=== PATIENT | male | born 1965 | race Caucasian/White ===

== ENCOUNTER 2020-01-10 10:30 | Day surgery (SDC) | payer BC ==
[~2020-01-10] VITALS: Ht 182.9 cm; Wt 124.3 kg
[~2020-01-10 10:30] MED LIST: LORTAB 10/500 51 TAB PO; NORVASC 5MG5 MG/TAB PO; PRAVACHOL 40MG40 MG PO; PRINIVIL20 MG PO
[2020-01-10] MEDS ORDERED: ATORVASTATIN CALCIUM PO (11:18)
[2020-01-10] MEDS ORDERED: GLUMETZA500 MG PO (11:20)
[2020-01-10] MEDS ORDERED: LIPITOR20 MG PO (11:20)
[2020-01-10 11:21] VITALS: BP 146/63; PULSE 66; TEMP 98.1
[2020-01-10] MEDS ORDERED: ASPIRIN E.C. 8181 MG PO (11:21)
--- NOTE | 2020-01-10 11:26 | NUR ---
TO RM AT 1050- CALL LIGHT IN REACH WILL CALL FOR RIDE HOME
[2020-01-10] MEDS ORDERED: NORCO 325 MG-51 TAB PO (14:36)
[2020-01-10] MEDS ORDERED: MOTRIN 600600 MG/TAB PO (14:37)
[2020-01-10] MEDS ORDERED: COLACE 100100 MG/CAP PO (14:37)
[2020-01-10 14:45] VITALS: BP 122/60; PULSE 71; TEMP 98.2
--- NOTE | 2020-01-10 14:45 | NUR ---
TO RM 8 PER CART FROM PACU. ALERT ORIENTED X3, TALKING TO STAFF. VALERO SET OVER INCISION CLEAN DRY INTACT. RECEIVED WATER.
[2020-01-10 15:00] VITALS: BP 123/59; PULSE 69
--- NOTE | 2020-01-10 15:00 | NUR ---
DRANK CUP OF WATER. RESTING QUIETLY.
[2020-01-10 15:15] VITALS: BP 124/58; PULSE 74
--- NOTE | 2020-01-10 15:15 | NUR ---
ABLE TO REPOSITION SELF UP IN BED. RECEIVED APPLE SAUCE AND 2ND CUP OF WATER.
[2020-01-10 15:30] VITALS: BP 127/64; PULSE 74
--- NOTE | 2020-01-10 15:30 | NUR ---
ATE 100% AND TOLERATED WELL.
--- NOTE | 2020-01-10 15:45 | NUR ---
AMBULATED BATHROOM STEADY GIAT. VOIDED AND AMBULATED BACK TO . RECEIVED DISCHARGE INSTRUCTIONS AND VERBALIZED UNDERSTANDING. CALLED TO STADIUM ATTENDANT PAITENT.
--- NOTE | 2020-01-10 16:00 | NUR ---
DISCHARGED PER WC BY NURSING STAFF TO PRIVATE CAR IN CARE OF JANUSZ.
== END 2020-01-10 16:08 | disposition home or self-care (01) ==
LOC: SDCO 10:30
DX: K42.9 Umbilical hernia without obstruction or gangrene (principal); K43.2 Incisional hernia without obstruction or gangrene; E11.9 Type 2 diabetes mellitus without complications; I10 Essential (primary) hypertension; E78.00 Pure hypercholesterolemia, unspecified; Z79.84 Long term (current) use of oral hypoglycemic drugs; Z82.49 Family history of ischemic heart disease and other diseases of the circulatory system; Z88.5 Allergy status to narcotic agent
CPT/HCPCS: C1781; J0690; J1100; J1885; J2405; J2704; J3010; J7120

== ENCOUNTER → 2020-06-04 | Outpatient (CLI) | payer BC ==
[~2020-06-04] MED LIST changes: +ASPIRIN E.C. 8181 MG PO; +ATORVASTATIN CALCIUM PO; +COLACE 100100 MG/CAP PO; +GLUMETZA500 MG PO; +LIPITOR20 MG PO; +MOTRIN 600600 MG/TAB PO; +NORCO 325 MG-51 TAB PO
== END ==
LOC: COL.RAD 12:29
DX: K63.89 Other specified diseases of intestine (principal); K76.89 Other specified diseases of liver
CPT/HCPCS: Q9967

== ENCOUNTER 2020-12-07 19:02 | Inpatient (IN) | payer BC ==
[~2020-12-07] VITALS: Ht 182.9 cm; Wt 104.5 kg
[2020-12-07 20:22] LABS: BASO % 0.2 % (0.0-2.0); EOS % 0.3 % (0-4.0); GRAN # 7.6 (1.4-6.5); GRAN % 78.7 % (42.2-75.2); LYMPH # 0.9 (1.2-3.4); LYMPH % 9.3 % (20.0-51.0); MEAN CELL VOLUME 83 fl (80.0-100.0); MEAN CORPUSCULAR HGB CONC 30 g/dl (33.0-37.0); MEAN PLATELET VOLUME 9.6 fl (7.4-10.4); MONO % 10.8 % (1.7-9.3); PLATELET COUNT 274 K/mm3 (130-400); RED BLOOD COUNT 3.17 M/mm3 (4.20-5.60); REDCELL DISTRIBUTION WIDTH-CV 13.2 % (11.5-14.5)
[2020-12-07 20:26] LABS: HEMATOCRIT 26.4 % (42.0-52.0); MEAN CORPUSCULAR HEMOGLOBIN 25 pg (27.0-31.0)
[2020-12-07 20:37] LABS: ALBUMIN 3.2 gm/dL (3.5-5.0); BILIRUBIN,TOTAL 0.4 mg/dL (0.0-1.0); CREATININE, serum 0.64 (0.66-1.25); POTASSIUM 3.8 mmol/L (3.4-5.0); TOTAL PROTEIN 6.5 gm/dL (6.4-8.2)
[2020-12-08] VITALS (8 sets, daily range): BP systolic 105–141; BP diastolic 47–66; PULSE 85–102; TEMP 98.6–101.5
[2020-12-08 00:09] LABS: COLLECTION METHOD CLEAN CATCH
[2020-12-08 00:15] LABS: MUCOUS Present /lpf; PH 5 (5-8); SQUAMOUS EPITHELIAL None Seen /hpf; URINE APPEARANCE Clear; URINE BACTERIA None Seen /hpf; URINE BILIRUBIN Negative (NEGATIVE); URINE BLOOD Negative (NEGATIVE); URINE COLOR Yellow; URINE GLUCOSE Negative (NEGATIVE); URINE KETONE Trace (NEGATIVE); URINE LEUKOCYTE ESTERASE Negative (NEGATIVE); URINE NITRATE Negative (NEGATIVE); URINE PROTEIN(semi-quant) Negative (NEGATIVE); URINE RBC 0-2 /hpf; URINE UROBILINOGEN >=4.0 mg/dL (NEGATIVE)
--- NOTE | 2020-12-08 03:11 | NUR ---
Patient up to room 349 via wheelchair. Oriented to room and call light. Went over visitation policies with patient. Admission and med rec complete. Patient seems upset over admission, stating "he came in thinking he had an infection and now might have cancer". Patient is not in any pain right now and has no additional needs. Call light in reach. Patient encouraged to call if he starts having pain.
--- NOTE | 2020-12-08 04:21 | NUR ---
Notified by MARIUSZ Lam, that patient was having pain in his abdomen. 2 mg of morphine administered.
--- NOTE | 2020-12-08 06:23 | NUR ---
Patient states he is not in any pain this morning. Fluids infuisng per orders. Will report off to day shift.
[2020-12-08 07:14] LABS: INR 1.5 (0.8-3.0); PROTHROMBIN TIME 17.1 SECONDS (9.7-12.8)
[2020-12-08 07:15] LABS: BASO % 0.1 % (0.0-2.0); EOS % 0.4 % (0-4.0); GRAN # 7.1 (1.4-6.5); LYMPH # 0.8 (1.2-3.4); LYMPH % 9.3 % (20.0-51.0); MEAN CELL VOLUME 84 fl (80.0-100.0); MEAN CORPUSCULAR HGB CONC 30 g/dl (33.0-37.0); MEAN PLATELET VOLUME 9.5 fl (7.4-10.4); MONO % 11.4 % (1.7-9.3); PLATELET COUNT 274 K/mm3 (130-400); RED BLOOD COUNT 3.22 M/mm3 (4.20-5.60); REDCELL DISTRIBUTION WIDTH-CV 13.2 % (11.5-14.5)
[2020-12-08 07:19] LABS: HEMATOCRIT 27.1 % (42.0-52.0); MEAN CORPUSCULAR HEMOGLOBIN 25 pg (27.0-31.0)
[2020-12-08 07:20] LABS: CALCIUM 8.3 mg/dL (8.4-10.2); CREATININE, serum 0.61 (0.66-1.25); POTASSIUM 3.6 mmol/L (3.4-5.0)
--- NOTE | 2020-12-08 08:10 | NUR ---
Patient sitting up in recliner. Alert and oriented x 3. Assessment complete. Patient denies pain at this time. Fluids infusing per orders to right AC IV. Denies further needs at this time.
--- NOTE | 2020-12-08 09:40 | NUR ---
Patient called out states pain to abdomen 02/17, medications given at this time. Will report off to software sales manager.
--- NOTE | 2020-12-08 09:48 | NUR ---
Left message for Dr. Harrell and Dr. Gleason for consults.
--- NOTE | 2020-12-08 15:40 | NUR ---
Dr. Harrell in to see patient.
--- NOTE | 2020-12-08 17:50 | NUR ---
Patient doing well throughout the day, independent in room. Fluids and antibiotics infusing per orders. Patient up to recliner throughout the day. IV restarted to right forarm x1 attempt, discontinued IV to RAC; catheter tip intact. Patient requests pain meds for abdominal pain; medications given through the day per orders. States he has been tolerating yogurt but not having much intake otherwise. States he has not had a BM today. No further needs at this time. Will report off to lieutenant shift supervisor.
[2020-12-09 03:44] VITALS: BP 117/59; PULSE 82; TEMP 98.6
--- NOTE | 2020-12-09 04:47 | NUR ---
Patient has been independent in his room. PRN pain medication given as needed and tylenol given for fevers. Abdomen is tender to the touch. Patient has not had a bowel movement this shift.
[2020-12-09 06:03] LABS: BASO % 0.2 % (0.0-2.0); EOS # 0.1 (0.0-0.7); EOS % 0.7 % (0-4.0); GRAN # 7.2 (1.4-6.5); GRAN % 78.4 % (42.2-75.2); LYMPH # 0.7 (1.2-3.4); LYMPH % 8.1 % (20.0-51.0); MEAN CELL VOLUME 86 fl (80.0-100.0); MEAN CORPUSCULAR HGB CONC 29 g/dl (33.0-37.0); MEAN PLATELET VOLUME 9.4 fl (7.4-10.4); MONO # 1.1 (0.1-0.6); MONO % 11.5 % (1.7-9.3); PLATELET COUNT 266 K/mm3 (130-400); RED BLOOD COUNT 3.12 M/mm3 (4.20-5.60); REDCELL DISTRIBUTION WIDTH-CV 13.5 % (11.5-14.5)
[2020-12-09 06:14] LABS: CALCIUM 8.1 mg/dL (8.4-10.2); CREATININE, serum 0.63 (0.66-1.25); POTASSIUM 3.8 mmol/L (3.4-5.0)
[2020-12-09 06:25] LABS: HEMATOCRIT 26.7 % (42.0-52.0); HEMOGLOBIN 7.8 g/dl (13.5-18.0); MEAN CORPUSCULAR HEMOGLOBIN 25 pg (27.0-31.0)
[2020-12-09 07:33] VITALS: BP 126/60; PULSE 88; TEMP 99.2
--- NOTE | 2020-12-09 08:00 | NUR ---
Patient sitting up in recliner, upset that he has not been able to have anything to drink since 299 d/t being npo for possible liver biopsy today. Assessment complete. Denies pain at this time. Fluids infuising per orders to right forarm IV. Denies further needs at this time.
--- NOTE | 2020-12-09 09:20 | NUR ---
Patient refusing AM meds at this time, states he would just "like to be left alone since he cannot have anything to eat or drink". Spouse at bedside. Offered pain medications at this time as patient appears uncomfortable and holding onto abdomen. Refuses at this time.
[2020-12-09 10:09] LABS: INR 1.6 (0.8-3.0); PROTHROMBIN TIME 17.8 SECONDS (9.7-12.8)
--- NOTE | 2020-12-09 10:40 | NUR ---
Block Trader met with patient and his , Rhonda (ph#[phone]) to discuss discharge planning. Patient lives in [place] with his and sees Dr. Mckinley for primary care. Patient obtains medications from [facility] with no difficulties. Patient states he is employed in [employer]. Patient does not use any DME and reports independence with ADLS. Patient does not have Advance Directives and is not sure he is interested in completing DPOA-[facility] at this time. SW advised patient she could assist if patient changes his mind. Patient advised he's done a financial power of claims attorney in the past designating his . Patient plans to return home upon discharge. Discharge Plan: Home
[2020-12-09 11:53] VITALS: BP 128/69; PULSE 95; TEMP 100.2
--- NOTE | 2020-12-09 14:45 | NUR ---
First visit from the credit card control clerk. No needs right now.
[2020-12-09 17:25] VITALS: BP 126/60; PULSE 85; TEMP 98.3
--- NOTE | 2020-12-09 18:13 | NUR ---
Patient doing well throughout the day, educated patient on pain medication use and calling for pain medications. Patient denies pain at this time. Tylenol given for fevers. Patient denies pain at this time. Will report off to lead sewage plant operator.
[2020-12-09 19:43] VITALS: BP 126/61; PULSE 93; TEMP 99.9
--- NOTE | 2020-12-09 20:15 | NUR ---
Pt. sitting up in chair at this time. Pt. is A&Ox3, assessment complete. INT to rt. forearm patent. Pt. reports abd. pain at a 6 on pain scale, giving pain meds per orders. Pt. denies further needs, call light within reach.
[2020-12-09 23:34] VITALS: BP 144/63; PULSE 85; TEMP 99.8
[2020-12-10 04:40] VITALS: BP 135/63; PULSE 92; TEMP 100.3
[2020-12-10 06:32] LABS: BASO % 0.2 % (0.0-2.0); EOS % 0.5 % (0-4.0); GRAN # 6.8 (1.4-6.5); GRAN % 79.4 % (42.2-75.2); LYMPH # 0.6 (1.2-3.4); LYMPH % 7.3 % (20.0-51.0); MEAN CELL VOLUME 84 fl (80.0-100.0); MEAN CORPUSCULAR HGB CONC 30 g/dl (33.0-37.0); MEAN PLATELET VOLUME 9.3 fl (7.4-10.4); MONO % 11.4 % (1.7-9.3); PLATELET COUNT 266 K/mm3 (130-400); RED BLOOD COUNT 3.01 M/mm3 (4.20-5.60); REDCELL DISTRIBUTION WIDTH-CV 13.5 % (11.5-14.5)
[2020-12-10 06:35] LABS: CALCIUM 8.3 mg/dL (8.4-10.2); CREATININE, serum 0.63 (0.66-1.25); INR 1.6 (0.8-3.0); POTASSIUM 3.7 mmol/L (3.4-5.0); PROTHROMBIN TIME 18.1 SECONDS (9.7-12.8)
[2020-12-10 06:40] LABS: HEMATOCRIT 25.3 % (42.0-52.0); HEMOGLOBIN 7.7 g/dl (13.5-18.0); MEAN CORPUSCULAR HEMOGLOBIN 26 pg (27.0-31.0)
[2020-12-10 07:23] VITALS: BP 118/61; PULSE 83; TEMP 98.9
--- NOTE | 2020-12-10 09:00 | NUR ---
Patient sitting up in recliner, alert and oriented x 3. Assessment complete. Patient upset d/t being NPO for possible biopsy today. Repeat INR at 1.6; CT states they will be unable to do biopsy today due to INT, order for recheck for 12/12/19. Diet order changed from NPO to AHA. Patient denies pain or additional needs at this time. Spouse at bedside.
--- NOTE | 2020-12-10 09:37 | NUR ---
Initial visit; Patient and his expressed anxiety regarding the length of their stay without hearing results. Test Car Driver listened and suggested they continue to let their feelings be know to their physicians. Test Car Driver offered God's blessings.
--- NOTE | 2020-12-10 10:30 | NUR ---
Notified Dr. Chacon, patient upset states he wants to get out of the hospital. States that he is convinced that staff is "fixing his labs" so he has to stay in the hospital. Patient also states that he is going to "leave this hospital so he can find another one that will treat him as person and not a paycheck because he is not paying for all of these bullshit labs that are inaccurate to force him to stay so we can rack up his bill". Attempted to educate patient and spouse on lab and medications that have been given to patient. Patient states he just wants to be left alone.
[2020-12-10 11:30] VITALS: BP 139/51; PULSE 91; TEMP 100.4
--- NOTE | 2020-12-10 13:28 | NUR ---
Doll Repairer attended clinical rounds with the team and patient would like to discharge today, although Hospitalist advised against this. Patient's daughter is on speakerphone and is at bedside. Patient agreeable to stay overnight.
[2020-12-10 15:15] VITALS: BP 126/58; PULSE 83; TEMP 100.6
--- NOTE | 2020-12-10 15:27 | NUR ---
Contacted Idalia VEE, patient temp at 100.6 after tylenol administration.
[2020-12-10 16:58] VITALS: TEMP 99.8
--- NOTE | 2020-12-10 18:36 | NUR ---
Patient doing well throughout the night. Has been up independently in room. Dr. Barriga in to see patient. Patient states he is trying no to take pain medications, states pain tolerable. Educated patient on medications. No further needs at this time. Will report off to shift production supervisor.
[2020-12-10 20:23] VITALS: BP 152/52; PULSE 99; TEMP 100.8
--- NOTE | 2020-12-10 23:52 | NUR ---
Patient assessed around 1930. Alert and oriented, and able to make needs known. Patient complained of pain to abdomen, and was given PRN [place] as requested for pain, which as effective. Peripheral INT to left forearm. Denies having SOB and dyspnea. LS CTA. Respirations even and unlabored. HRR. Capillary refill less than 3 seconds. Non-tenting skin turgor. BSAx4. No edema. Voices no questions, needs, or concerns at this time. Resting in recliner with call light within reach.
[2020-12-11] VITALS (20 sets, daily range): BP systolic 124–152; BP diastolic 62–82; PULSE 89–109; TEMP 99–102.4
--- NOTE | 2020-12-11 05:44 | NUR ---
Patient states he wasnt able to sleep much during the night. NPO at this time for liver biopsy. Awaiting lab results to see if biopsy will be able to be done today or not. Continues on antibiotics per orders. Voices no questions, needs, or concerns at this time. Resting in recliner with call light within reach.
[2020-12-11 06:27] LABS: BASO % 0.2 % (0.0-2.0); EOS # 0.1 (0.0-0.7); EOS % 0.5 % (0-4.0); GRAN # 8.7 (1.4-6.5); GRAN % 82.2 % (42.2-75.2); LYMPH # 0.7 (1.2-3.4); LYMPH % 6.6 % (20.0-51.0); MEAN CELL VOLUME 84 fl (80.0-100.0); MEAN CORPUSCULAR HGB CONC 30 g/dl (33.0-37.0); MEAN PLATELET VOLUME 9.4 fl (7.4-10.4); MONO % 9.5 % (1.7-9.3); PLATELET COUNT 316 K/mm3 (130-400); RED BLOOD COUNT 3.41 M/mm3 (4.20-5.60); REDCELL DISTRIBUTION WIDTH-CV 13.6 % (11.5-14.5)
[2020-12-11 06:36] LABS: INR 1.6 (0.8-3.0); PROTHROMBIN TIME 17.8 SECONDS (9.7-12.8)
[2020-12-11 06:39] LABS: HEMATOCRIT 28.5 % (42.0-52.0); HEMOGLOBIN 8.4 g/dl (13.5-18.0); MEAN CORPUSCULAR HEMOGLOBIN 25 pg (27.0-31.0)
[2020-12-11 06:45] LABS: CALCIUM 8.7 mg/dL (8.4-10.2); CREATININE, serum 0.66 (0.66-1.25)
--- NOTE | 2020-12-11 09:20 | NUR ---
Relayed to patient that he will be receiving two units FFP, after transfusion, lab work will be checked, if labs appropriate, patient will have liver biopsy around noon today. Patient becomes verbally aggressive, stating "this is bullshit, I'm not fucking doing this again today, no one here knows what they are doing". Patient then states he needs something to eat. Reviewed with patient NPO status until after biopsy. Patient states "this is fucking bullshit, you all are starving me". Attempted to give patient his medications, refuses. States "I haven't had them since I've been here and I'm fine." Reviewed with patient importance of medications, continues to refuse. Patient asks to be left alone until FFP is available, and to "get that stuff up here now."
--- NOTE | 2020-12-11 10:23 | NUR ---
Patient alert and oriented, answers questions appropriately. See assessment. Abdomen rounded, tender to palpation. Bowel sounds active x4 quads. +Flatus. Independent in room. No c/o at this time.
[2020-12-11 13:58] LABS: INR 1.5 (0.8-3.0); PROTHROMBIN TIME 16.7 SECONDS (9.7-12.8)
--- NOTE | 2020-12-11 14:23 | NUR ---
PT BROUGHT DOWN FROM RM [address] TABLE. MONITORING EQUIPMENT PLACED.
--- NOTE | 2020-12-11 19:30 | NUR ---
NEW ORDER FOR PE CT. RADIOLOGY HERE TO VP PURCHASING PT PER W/C.
--- NOTE | 2020-12-11 20:00 | NUR ---
PT SOMEWHAT GRUMPY BUT COOPERATIVE. RELATES HE'S TIRED OF EVERYTHING. JUST WANTS TO GO HOME. PAIN CONTROLLED WITH NORCO. TEMP DOWN TO 99.2 NOW. NO NEEDS AT THIS TIME.
--- NOTE | 2020-12-11 22:51 | NUR ---
PT DENIED NEED FOR PAIN MEDICATION.
[2020-12-12 03:56] VITALS: BP 154/72; PULSE 98; TEMP 99.1
[2020-12-12 07:35] LABS: BASO % 0.1 % (0.0-2.0); EOS % 0.3 % (0-4.0); GRAN # 8.9 (1.4-6.5); GRAN % 82.7 % (42.2-75.2); LYMPH # 0.7 (1.2-3.4); LYMPH % 6.4 % (20.0-51.0); MEAN CELL VOLUME 83 fl (80.0-100.0); MEAN CORPUSCULAR HGB CONC 30 g/dl (33.0-37.0); MEAN PLATELET VOLUME 9.7 fl (7.4-10.4); MONO % 9.5 % (1.7-9.3); PLATELET COUNT 268 K/mm3 (130-400); RED BLOOD COUNT 3.22 M/mm3 (4.20-5.60); REDCELL DISTRIBUTION WIDTH-CV 13.6 % (11.5-14.5)
[2020-12-12 07:40] LABS: HEMATOCRIT 26.8 % (42.0-52.0); HEMOGLOBIN 8.1 g/dl (13.5-18.0); MEAN CORPUSCULAR HEMOGLOBIN 25 pg (27.0-31.0)
[2020-12-12 07:55] LABS: CALCIUM 8.3 mg/dL (8.4-10.2); CREATININE, serum 0.64 (0.66-1.25); POTASSIUM 3.9 mmol/L (3.4-5.0)
[2020-12-12 08:00] VITALS: BP 144/61; PULSE 89; TEMP 99.2
--- NOTE | 2020-12-12 09:33 | NUR ---
Initial visit; Patient thanked Carbon Brush Maker for offering God's blessings today and patient learned fron patient that he is doing "ok" today.
[2020-12-12] MEDS ORDERED: CEFTIN500 MG PO (10:38)
[2020-12-12] MEDS ORDERED: FLAGYL500 MG PO (10:39)
[2020-12-12] MEDS ORDERED: NORCO 325 MG-51 TAB PO (10:40)
[2020-12-12] MEDS ORDERED: SENOKOT8.6 MG PO (10:41)
--- NOTE | 2020-12-12 10:42 | NUR ---
Food Mixer Repairer attended clinical rounds with the team and patient to discharge home today.
--- NOTE | 2020-12-12 11:36 | NUR ---
Patient alert and oriented, answers questions appropriately. See assessment. Patient allows assessment, but refuses medications. Abdomen rounded and firm. Bowel sounds active x4 quads. Wishes to go home. No other c/o at this time.
--- NOTE | 2020-12-12 12:53 | NUR ---
Discharge instructions reviewed with patient and spouse, verbalized understanding. Discharged ambulatory to auto/home with spouse at 1215.
== END 2020-12-12 12:15 | disposition home or self-care (01) | DRG 394 ==
LOC: COL.ER 19:02 → SURG 12-08 02:18
PROVIDERS: Emergency Medicine; Physician Assistant; Radiology Diagnostic Radiology; Student in an Organized Health Care Education/Training Program; ADMIT Internal Medicine
PROC: 0FB13ZX Excision of Right Lobe Liver, Percutaneous Approach, Diagnostic (ICD-10-PCS; principal; 2020-12-11)
DX: K63.9 Disease of intestine, unspecified (principal); E44.0 Moderate protein-calorie malnutrition; C78.7 Secondary malignant neoplasm of liver and intrahepatic bile duct; R18.0 Malignant ascites; E87.1 Hypo-osmolality and hyponatremia; E11.9 Type 2 diabetes mellitus without complications; I10 Essential (primary) hypertension; D64.9 Anemia, unspecified; K57.90 Diverticulosis of intestine, part unspecified, without perforation or abscess without bleeding; Z20.822 Contact with and (suspected) exposure to COVID-19; E78.5 Hyperlipidemia, unspecified; R59.0 Localized enlarged lymph nodes; E86.0 Dehydration; R79.1 Abnormal coagulation profile; R91.8 Other nonspecific abnormal finding of lung field; R50.9 Fever, unspecified; R19.7 Diarrhea, unspecified; Z68.31 Body mass index [BMI] 31.0-31.9, adult; Z79.82 Long term (current) use of aspirin; Z79.84 Long term (current) use of oral hypoglycemic drugs; Z88.6 Allergy status to analgesic agent
CPT/HCPCS: 99223-AI; 99233-AI; J0696; J2250; J2270; J3010; J3430; J7030; Q9967